=== PATIENT | female | born 1995 | race Caucasian/White ===

== ENCOUNTER 2019-12-13 13:21 | Outpatient (REF) | payer OTHER, SELFPAY | END 2019-12-13 13:22 | disposition home or self-care (01) | LOC: HO.LAB 13:21 | PROVIDERS: Visit Provider Internal Medicine | DX: Z20.828 Contact with and (suspected) exposure to other viral communicable diseases (principal) | CPT/HCPCS: 87635 ==

== ENCOUNTER 2019-12-21 14:10 | Emergency (ER) | payer OTHER, SELFPAY ==
--- NOTE | 2019-12-21 14:18 | ED.NAVMDI ---
HPI - Nausea/Vomiting/Diarrhea General Chief complaint: Nausea/Vomiting/Diarrhea Stated complaint: etoh Time Seen by Provider: 12/21/19 14:17 Source: EMS Mode of arrival: EMS Limitations: no limitations History of Present Illness HPI Narrative: 24-year-old female with past medical history significant for alcohol abuse and acute alcoholic pancreatitis for which she had admission here on October 07 presenting via EMS with complaint of epigastric abdominal pain / nausea vomiting since this morning. She states she was clean for 45 days relapsed 3 days ago she drinks scotch and had a few scratch drinks a day slow intensive vital past 2 days and last night had a few more drinks this morning woke up with these symptoms. MD elicited complaint: nausea, vomiting and abdominal pain Onset (ago): day(s) Description of vomiting: bilious Associated nausea: Yes Associated abdominal pain: Yes Location of pain: epigastric Radiation: diffuse Pain consistency: constant Severity: moderate Quality: aching Exacerbating factors: eating and vomiting Relieving factors: none Context: alcohol abuse Associated symptoms: denies other symptoms Treatment prior to arrival: none Related Data Previous Rx's Medication Instructions Recorded ondansetron HCl [Zofran] 4 mg PO Q8H PRN #10 tab 12/21/19 oxycodone 5 mg PO BID PRN 5 Days #10 tab NS 12/21/19 Allergies Allergy/AdvReac Type Severity Reaction Status Date / Time No Known Allergies Allergy Unverified 11/15/19 17:01 [No Known Allergies*] Review of Systems Review of Systems: Constitutional: No Weight loss, No Fever, No Chills, No Night Sweats, No Fatigue, No Malaise ENT/Mouth: No Hearing loss, No Ear Pain, No Nasal Congestion, No Sinus Pain, No Hoarseness, No sore throat, No Rhinorrhea, No Swallowing Difficulty Eyes: No Eye Pain, No Swelling, No Redness, No Foreign Body, No Discharge, No Vision Changes Cardiovascular: No Chest Pain, No SOB, No Dyspnea on Exertion, No Orthopnea, No Edema, No Palpitations Respiratory: No Cough, No Sputum, No Wheezing, No Dyspnea Gastrointestinal: No Nausea, No Vomiting, No Diarrhea, No Constipation, No abdominal Pain, No Hematochezia, No Melena Genitourinary: no irregular bleeding, No Dysuria, No Urinary Frequency, No Hematuria, No Urinary Incontinence, No Urgency, No Flank Pain, No Urinary Flow Changes, No Hesitancy Musculoskeletal: No joint pain, No Myalgias, No Joint Swelling Skin: No Skin Lesions, No rash Neuro: No Weakness, No Numbness, No Paresthesias, No Loss of Consciousness, No Dizziness, No Headache Psych: No Anxiety/Panic, No Depression, No SI/HI/AH/VH, No Social Issues Heme/Lymph: No Bruising, No Bleeding,No Lymphadenopathy Endocrine: No Polyuria, No Polydipsia, No Temperature Intolerance Yes all other systems are reviewed and are negative Gastrointestinal: Gastrointestinal: Reports nausea PMFSH Past Medical History Attestation statement: The following information was validated with the patient. Medical History (Updated 12/21/19 @ 19:44 by Nir Bourgeois NP) Pancreatitis Social History Social History Alcohol intake: current Alcohol intake frequency: 3 or more drinks per day Smoking Status: Never smoker Use of substances other than those prescribed or required for medical reasons: No Advance Directives: No Advance Directives Information Provided: No Physical Exam Vital Signs: Vital Signs: Vital Signs Temp Pulse Resp BP Pulse Ox 12/21/19 14:36 98.8 F 93 16 127/79 98 12/21/19 14:31 98.8 F 93 16 127/79 98 Body Mass Index 23.6 Reviewed Const: General: cooperative, healthy appearing and anxious; No acute distress or intoxicated appearing Nutritional Appearance: average body habitus Orientation/consciousness: patient oriented x3 HENMT: Head: Yes normal to inspection Ears: hearing grossly normal bilaterally Eyes: General: appearance normal, both eyes and all related structures Visual Peres: normal visual peres by confrontation Neck: Neck: Yes normal visual inspection and No tender Thyroid: Thyroid normal Chest: Chest palpation & inspection: normal inspection of the chest Resp: Effort & Inspection: normal respiratory effort Cardio: Jugular venous distension: no JVD GI: Inspection: Yes normal to inspection Percussion: Yes normal to percussion Auscultation: normal bowel sounds : General: Yes no CVA tenderness Back/Spine/Pelvis: Back: no CVA tenderness Skin: General skin exam: no rashes or lesions noted Neuro: General: patient oriented x3 Extrem: General: Yes normal to inspection Course Course Course Narrative: labs shows improving transaminitis in the setting of alcohol abuse. Still slight epigastric pain but resting comfortably. CT of the abdomen shows findings consistent with acute on chronic pancreatitis. She has no pain at this time. Tolerating p.o. intake well. Reluctant against admission. Will be discharged home with clear precaution return follow-up instructions. Referral to Gastroenterology provided. Risk of continued alcohol abuse reviewed including but not limited to worsening in her health/pancreatitis/. She verbalized understanding. Will follow up with GI as well as her primary care doctor on Tuesday. She is stable for discharge. MDM - Nausea/Vomiting/Diarrhea Medical Records Attestation: I reviewed the patient's medical records. Medical records narrative: 10/08/2019 admission/ discharge diagnosis Steatosis, acute pancreatitis, alcohol dependence Lab Data Result diagrams: 12/21/19 14:47 12/21/19 14:47 Labs: Lab Results 12/21/19 12/21/19 12/21/19 Range/Units 14:47 14:47 14:47 WBC 8.8 (4.8-10.8) X10*3/uL RBC 4.19 L (4.20-5.50) X10*6/uL Hgb 13.3 (12.0-16.0) g/dl Hct 40.0 (37-47) % MCV 95.5 (80-98) fL MCH 31.7 (27.0-33.0) pg MCHC 33.3 (31.0-35.0) g/dl RDW 11.9 (11.0-16.0) % Plt Count 162 (160-400) X10*3/uL MPV 10.0 (9.4-12.3) fL Immature Gran % (Auto) 0.5 H (0.0-0.4) % Neut % (Auto) 80.6 H (45-73) % Lymph % (Auto) 15.1 L (20-40) % [place] % (Auto) 3.1 (2-11) % Eos % (Auto) 0.1 (0-4) % Baso % (Auto) 0.6 (0-2) % Lymph # (Auto) 1.3 (1.2-4.9) X10*3/uL [place] # (Auto) 0.3 (0.1-1.2) X10*3/uL Eos # (Auto) 0.0 (0.0-0.4) X10*3/uL Baso # (Auto) 0.1 (0.0-0.2) X10*3/uL Abs Immat Gran (auto) 0.04 H (0.00-0.03) X10*3/uL Absolute Neuts (auto) 7.1 (2.0-8.3) X10*3/uL Absolute Nucleated RBC 0.000 (0.0-0.012) X10*3/uL Nucleated RBC % (auto) 0.0 (0.0-0.2) /100WBC PT 13.1 H (10.8-13.0) SEC INR 1.1 (0.9-1.1) APTT 27.6 (24.1-38.0) SEC Sodium 139 (135-145) mmol/L Potassium 3.3 (3.3-5.1) mmol/l Chloride 98 (96-108) mmol/L Carbon Dioxide 14 L (22-29) mmol/L Anion Gap 30 H (12-20) BUN 11 (9-16) mg/dL Creatinine 0.69 (0.5-1.4) mg/dL Estim Creat Clear Calc 106.7 Estimated GFR > 60 Random Glucose 75 (60-115) mg/dL Calcium 8.8 (8.4-10.2) mg/dL Magnesium 1.8 (1.6-2.6) mg/dL Total Bilirubin 1.6 H (0.0-1.0) mg/dL AST 66 H (5-31) U/L ALT 37 H (0-31) U/L Alkaline Phosphatase 69 (39-117) U/L Total Protein 7.3 (6.5-8.0) g/dL Albumin 4.6 (3.5-5.0) g/dL Lipase 380 H (8-78) U/L Urine Color Urine Appearance Urine pH (5.0-8.0) Ur Specific [place] (1.005-1.025) Urine Protein (NEG-TRACE) MG/DL Urine Glucose (UA) (NEG) MG/DL Urine Ketones (NEG) MG/DL Urine Blood (NEG) Urine Nitrite (NEG) Ur Leukocyte Esterase (NEG) Urine RBC (0) /HPF Urine WBC (0-4) /HPF Ur Squamous Epith Cells /LPF Urine Bacteria /LPF Urine Test (NEGATIVE) Urine Opiates Screen (Not Detect) Ur Barbiturates Screen (Not Detect) Ur Phencyclidine Scrn (Not Detect) Ur Amphetamines Screen (Not Detect) U Benzodiazepines Scrn (Not Detect) Urine Cocaine Screen (Not Detect) U Marijuana (THC) Screen (Not Detect) Ethyl Alcohol mg/dL 12/21/19 12/21/19 12/21/19 Range/Units 14:47 17:56 17:56 WBC (4.8-10.8) X10*3/uL RBC (4.20-5.50) X10*6/uL Hgb (12.0-16.0) g/dl Hct (37-47) % MCV (80-98) fL MCH (27.0-33.0) pg MCHC (31.0-35.0) g/dl RDW (11.0-16.0) % Plt Count (160-400) X10*3/uL MPV (9.4-12.3) fL Immature Gran % (Auto) (0.0-0.4) % Neut % (Auto) (45-73) % Lymph % (Auto) (20-40) % [place] % (Auto) (2-11) % Eos % (Auto) (0-4) % Baso % (Auto) (0-2) % Lymph # (Auto) (1.2-4.9) X10*3/uL [place] # (Auto) (0.1-1.2) X10*3/uL Eos # (Auto) (0.0-0.4) X10*3/uL Baso # (Auto) (0.0-0.2) X10*3/uL Abs Immat Gran (auto) (0.00-0.03) X10*3/uL Absolute Neuts (auto) (2.0-8.3) X10*3/uL Absolute Nucleated RBC (0.0-0.012) X10*3/uL Nucleated RBC % (auto) (0.0-0.2) /100WBC PT (10.8-13.0) SEC INR (0.9-1.1) APTT (24.1-38.0) SEC Sodium (135-145) mmol/L Potassium (3.3-5.1) mmol/l Chloride (96-108) mmol/L Carbon Dioxide (22-29) mmol/L Anion Gap (12-20) BUN (9-16) mg/dL Creatinine (0.5-1.4) mg/dL Estim Creat Clear Calc Estimated GFR Random Glucose (60-115) mg/dL Calcium (8.4-10.2) mg/dL Magnesium (1.6-2.6) mg/dL Total Bilirubin (0.0-1.0) mg/dL AST (5-31) U/L ALT (0-31) U/L Alkaline Phosphatase (39-117) U/L Total Protein (6.5-8.0) g/dL Albumin (3.5-5.0) g/dL Lipase (8-78) U/L Urine Color Urine Appearance Urine pH (5.0-8.0) Ur Specific [place] (1.005-1.025) Urine Protein (NEG-TRACE) MG/DL Urine Glucose (UA) (NEG) MG/DL Urine Ketones (NEG) MG/DL Urine Blood (NEG) Urine Nitrite (NEG) Ur Leukocyte Esterase (NEG) Urine RBC (0) /HPF Urine WBC (0-4) /HPF Ur Squamous Epith Cells /LPF Urine Bacteria /LPF Urine Test NEGATIVE (NEGATIVE) Urine Opiates Screen Not Detected (Not Detect) Ur Barbiturates Screen Not Detected (Not Detect) Ur Phencyclidine Scrn Not Detected (Not Detect) Ur Amphetamines Screen Not Detected (Not Detect) U Benzodiazepines Scrn Not Detected (Not Detect) Urine Cocaine Screen Not Detected (Not Detect) U Marijuana (THC) Screen Not Detected (Not Detect) Ethyl Alcohol 31 mg/dL 12/21/19 Range/Units 17:57 WBC (4.8-10.8) X10*3/uL RBC (4.20-5.50) X10*6/uL Hgb (12.0-16.0) g/dl Hct (37-47) % MCV (80-98) fL MCH (27.0-33.0) pg MCHC (31.0-35.0) g/dl RDW (11.0-16.0) % Plt Count (160-400) X10*3/uL MPV (9.4-12.3) fL Immature Gran % (Auto) (0.0-0.4) % Neut % (Auto) (45-73) % Lymph % (Auto) (20-40) % [place] % (Auto) (2-11) % Eos % (Auto) (0-4) % Baso % (Auto) (0-2) % Lymph # (Auto) (1.2-4.9) X10*3/uL [place] # (Auto) (0.1-1.2) X10*3/uL Eos # (Auto) (0.0-0.4) X10*3/uL Baso # (Auto) (0.0-0.2) X10*3/uL Abs Immat Gran (auto) (0.00-0.03) X10*3/uL Absolute Neuts (auto) (2.0-8.3) X10*3/uL Absolute Nucleated RBC (0.0-0.012) X10*3/uL Nucleated RBC % (auto) (0.0-0.2) /100WBC PT (10.8-13.0) SEC INR (0.9-1.1) APTT (24.1-38.0) SEC Sodium (135-145) mmol/L Potassium (3.3-5.1) mmol/l Chloride (96-108) mmol/L Carbon Dioxide (22-29) mmol/L Anion Gap (12-20) BUN (9-16) mg/dL Creatinine (0.5-1.4) mg/dL Estim Creat Clear Calc Estimated GFR Random Glucose (60-115) mg/dL Calcium (8.4-10.2) mg/dL Magnesium (1.6-2.6) mg/dL Total Bilirubin (0.0-1.0) mg/dL AST (5-31) U/L ALT (0-31) U/L Alkaline Phosphatase (39-117) U/L Total Protein (6.5-8.0) g/dL Albumin (3.5-5.0) g/dL Lipase (8-78) U/L Urine Color YELLOW Urine Appearance HAZY Urine pH 6.0 (5.0-8.0) Ur Specific [place] >= 1.030 H (1.005-1.025) Urine Protein TRACE (NEG-TRACE) MG/DL Urine Glucose (UA) NEG (NEG) MG/DL Urine Ketones >=80 (NEG) MG/DL Urine Blood 3+ H (NEG) Urine Nitrite NEG (NEG) Ur Leukocyte Esterase NEG (NEG) Urine RBC 1-4 (0) /HPF Urine WBC 0 (0-4) /HPF Ur Squamous Epith Cells 2+ /LPF Urine Bacteria 1+ /LPF Urine Test (NEGATIVE) Urine Opiates Screen (Not Detect) Ur Barbiturates Screen (Not Detect) Ur Phencyclidine Scrn (Not Detect) Ur Amphetamines Screen (Not Detect) U Benzodiazepines Scrn (Not Detect) Urine Cocaine Screen (Not Detect) U Marijuana (THC) Screen (Not Detect) Ethyl Alcohol mg/dL Discharge Plan Discharge Clinical Impression: Alcohol abuse Pancreatitis Qualifiers: Chronicity: chronic Pancreatitis type: alcohol induced Qualified Code(s): K86.0 - Alcohol-induced chronic pancreatitis Patient Disposition: Home, Self-Care Instructions: Pancreatitis (ED), Abuse of Alcohol (ED), Alcohol Use Disorder (ED) Additional Instructions: avoid any alcoholic beverages Fall dietary precautions reviewed [place] diet Gradually increased diet as tolerated Push fluids Take medication Prescriptions: New ondansetron HCl [Zofran] 4 mg tablet 4 mg PO Q8H PRN (Reason: nausea and vomiting) Qty: 10 RF: 0 oxycodone 5 mg tablet 5 mg PO BID PRN (Reason: pain) 5 Days Qty: 10 RF: 0 Referrals: ED Physician,Generic [Emergency Provider] - 3 days ( your primary care doctor) Eboni Phelan MD [Physician] - 3 days
[2019-12-21 14:31] VITALS: BP 127/79; BP 128/81; PULSE 80; PULSE 93; RESP 16; TEMP 37.1; O2SAT 100; O2SAT 98; BMI 23.6
[2019-12-21 14:36] VITALS: BP 127/79; PULSE 93; RESP 16; TEMP 37.1; O2SAT 98
[2019-12-21 14:51] LABS: MANUAL DIFF FLAG NO
[2019-12-21] MEDS: 0.9 % Sodium Chloride 500 ML 1000 ML IV (14:52)
[2019-12-21] MEDS: LORazepam 2 MG/ML VIAL 1 MG IVPUSH (14:53)
[2019-12-21] MEDS: ondansetron HCL 4 MG/2 ML VIAL IVPUSH (14:53)
[2019-12-21 14:55] LABS: Basophils Absolute Auto 0.1 X10*3/uL (0.0-0.2); Basophils Percent Auto 0.6 % (0-2); Eosinophils Percent Auto 0.1 % (0-4); Hemoglobin 13.3 g/dl (12.0-16.0); Imm Gran Abs Auto 0.04 X10*3/uL (0.00-0.03); Imm Gran Pct Auto 0.5 % (0.0-0.4); Lymphocytes Absolute Auto 1.3 X10*3/uL (1.2-4.9); Lymphocytes Percent Auto 15.1 % (20-40); Mean Corpuscular HGB Conc 33.3 g/dl (31.0-35.0); Mean Corpuscular Hemoglobin 31.7 pg (27.0-33.0); Mean Corpuscular Volume 95.5 fL (80-98); Monocytes Absolute Auto 0.3 X10*3/uL (0.1-1.2); Monocytes Percent Auto 3.1 % (2-11); Neutrophils Absolute Auto 7.1 X10*3/uL (2.0-8.3); Neutrophils Percent Auto 80.6 % (45-73); Platelet Count 162 X10*3/uL (160-400); Red Blood Count 4.19 X10*6/uL (4.20-5.50); Red Cell Distribution Width 11.9 % (11.0-16.0); White Blood Count 8.8 X10*3/uL (4.8-10.8)
[2019-12-21 15:02] LABS: INTERNATIONAL NORM RATIO 1.1 (0.9-1.1); Prothrombin Time 13.1 SEC (10.8-13.0)
[2019-12-21 15:05] LABS: Partial Thromboplastin Time 27.6 SEC (24.1-38.0)
[2019-12-21 15:19] LABS: Ethanol 31 mg/dL
[2019-12-21 15:26] LABS: Alanine Aminotransferase 37 U/L (0-31); Albumin Level 4.6 g/dL (3.5-5.0); Alkaline Phosphatase 69 U/L (39-117); Anion Gap 30 (12-20); Aspartate Amino Transferase 66 U/L (5-31); Bilirubin Total 1.6 mg/dL (0.0-1.0); Blood Urea Nitrogen 11 mg/dL (9-16); Calcium 8.8 mg/dL (8.4-10.2); Carbon Dioxide 14 mmol/L (22-29); Chloride 98 mmol/L (96-108); Creatinine Clr Calc Pharmacy 106.7; Estimated Glomerular Filt Rate > 60; Glucose Random 75 mg/dL (60-115); Magnesium 1.8 mg/dL (1.6-2.6); Potassium 3.3 mmol/l (3.3-5.1); Sodium 139 mmol/L (135-145); Total Protein 7.3 g/dL (6.5-8.0)
[2019-12-21 16:54] LABS: Lipase 380 U/L (8-78)
--- NOTE | 2019-12-21 17:15 | CT_ITS ---
EXAMINATION: CT ABDOMEN AND PELVIS WITH CONTRAST CLINICAL INFORMATION: Epigastric and upper abdominal pain with history of pancreatitis COMPARISON: CT of the abdomen and pelvis performed on 10/05/2019 TECHNIQUE: Multidetector volumetric images were obtained from the superior aspect of the liver through the pubic symphysis following administration 85 mL of Omnipaque 350 intravenous contrast. Sagittal and coronal reformatted images were obtained on the technologist's workstation. Oral contrast: No This CT examination was performed using dose optimization techniques as appropriate, variously including the following: *Automated exposure control *Adjustment of mA and/or kV according to patient size (this includes techniques or standardized protocols for targeted exams where dose is matched to indication/reason for exam; i.e. extremities or head) *Use of iterative reconstruction technique DLP: 398 mGy-cm FINDINGS: LUNG BASES: The visualized lung bases are unremarkable. LIVER, GALLBLADDER, AND BILIARY TREE: Again demonstrated is diffusely decreased attenuation of the hepatic parenchyma likely circulation sales representative of hepatic steatosis. No focal lesion is visualized. The gallbladder is unremarkable with no evidence of radiopaque gallstones, gallbladder wall thickening, or obvious pericholecystic inflammatory changes. No intrahepatic or extrahepatic biliary ductal dilatation. PANCREAS: There is edema of the pancreas with a small amount of peripancreatic fluid fluid. No fluid collection. There is uniform enhancement of the pancreatic parenchyma. SPLEEN: Unremarkable. ADRENAL GLANDS: Unremarkable. KIDNEYS AND URETERS: The kidneys are normal in size, shape, and attenuation. No hydronephrosis, hydroureter, or calculi seen. No perinephric stranding. BLADDER: Unremarkable. GASTROINTESTINAL TRACT: The stomach is normal in appearance. There wall thickening of the duodenum, likely circulation sales representative of reactive/adjacent inflammation. The remainder of the small bowel and colon are normal in appearance. No focal dilatation or evidence of obstruction. Normal appendix. ABDOMINAL WALL: No significant hernia is appreciated. LYMPH NODES: No pathologically enlarged lymph nodes. Mild mid mesenteric edema and free fluid. VASCULAR: Unremarkable. PELVIC VISCERA: Unremarkable. OSSEOUS STRUCTURES: Unremarkable. CT/CT abdomen pelvis w con IMPRESSION: Acute interstitial edematous pancreatitis is again demonstrated with some peripancreatic fluid. No loculated peripancreatic fluid collection. No evidence of pancreatic necrosis. Adjacent inflammation of the duodenum. No evidence of bowel obstruction. Redemonstration of diffuse hepatic steatosis.
[2019-12-21 18:00] VITALS: BP 124/74; PULSE 88; RESP 16; TEMP 36.6; O2SAT 99
[2019-12-21 18:18] LABS: Glucose Urine UA NEG (NEG); Leukocyte Esterase Urine NEG (NEG); Nitrite Urine NEG (NEG); Specific Gravity - Urine >= 1.030 (1.005-1.025); Urine Blood 3+ (NEG); Urine Ketones >=80 MG/DL (NEG); Urine Protein TRACE MG/DL (NEG-TRACE)
[2019-12-21 18:21] LABS: Appearance Urine HAZY; Color Urine YELLOW
[2019-12-21 18:22] LABS: UPreg QC Valid YES; Urine Pregnancy NEGATIVE (NEGATIVE)
[2019-12-21 18:28] LABS: Bacteria Urine 1+ /LPF; Squamous Epithelial Cell Urine 2+ /LPF; WBC Urine 0 /HPF (0-4)
[2019-12-21 18:35] LABS: Amphetamine Screen Urine Not Detected (Not Detect); Barbiturates, Urine Not Detected (Not Detect); Benzodiazepines Screen Urine Not Detected (Not Detect); Cannabinoid Screen Urine Not Detected (Not Detect); Cocaine Screen Urine Not Detected (Not Detect); Opiate Screen Urine Not Detected (Not Detect); Phencyclidine Screen Urine Not Detected (Not Detect)
[2019-12-21] MEDS: iohexoL 350 MG/ML 100 ML INFUS..BTL IV (18:44)
[2019-12-21 20:00] VITALS: BP 120/81; PULSE 95; RESP 16; TEMP 36.7; O2SAT 98
== END 2019-12-21 20:38 | disposition home or self-care (01) ==
PROVIDERS: Nurse Practitioner Primary Care; Emergency Provider Emergency Medicine
DX: K86.0 Alcohol-induced chronic pancreatitis (principal); F10.10 Alcohol abuse, uncomplicated; Y90.1 Blood alcohol level of 20-39 mg/100 ml
CPT/HCPCS: 36415; 74177; 80053; 80307; 80320; 81001; 81025; 83690; 83735; 85025; 85610; 85730; 96361; 96374; 96375; 99284

== ENCOUNTER 2020-03-06 12:14 | Outpatient (REF) | payer OTHER, SELFPAY | END 2020-03-06 12:15 | disposition home or self-care (01) | LOC: HO.LAB 12:14 | PROVIDERS: Visit Provider Internal Medicine | DX: Z20.828 Contact with and (suspected) exposure to other viral communicable diseases (principal) | CPT/HCPCS: 36415; C9803; U0003 ==

== ENCOUNTER 2024-09-25 17:57 | Emergency (ER) | payer OTHER, SELFPAY ==
--- NOTE | ~2024-09-25 | CT_ITS ---
CLINICAL HISTORY: left flank pain, renal colic CT abdomen and pelvis without contrast Comparison: None provided Findings: Visualized lung bases are clear. Liver, spleen, adrenal glands, and gallbladder appear unremarkable. Scattered calcifications throughout pancreatic head and uncinate process that may represent component of chronic calcific pancreatitis.. No ductal dilation. No obstructing renal, ureteral or bladder calculi. Noncalcified and nonaneurysmal abdominal aorta. Unremarkable urinary bladder. Anteverted uterus. No free air or free fluid. Stomach is nondistended. Small bowel is normal caliber. No obstruction. Colon is unremarkable. No acute appendicitis. No acute osseous abnormality. No lytic or sclerotic osseous lesions. Impression: 1. No acute findings identified in the abdomen or pelvis. 2. Specifically, no evidence of obstructing renal, ureteral or bladder calculi. 3. Additional chronic/nonacute findings as above. This document has been electronically signed by: Jaswant Agarwal MD on 09/25/2024 23:48:53
[2024-09-25 18:44] VITALS: BP 139/80; PULSE 55; RESP 18; TEMP 36.9; O2SAT 98; BMI 25.3
--- NOTE | 2024-09-25 18:44 | ED.ABDPAIN ---
HPI - Abdominal Pain General Chief Complaint: Abdominal Pain Stated Complaint: Flank pain. Sent from Time Seen by Provider: 09/25/24 21:37 Source: patient Limitations: no limitations History of Present Illness ED Provider: Yvrose Spence PA-C HPI narrative: 29-year-old female with a history of prior pancreatitis presents with multiple complaints. Patient states she has been having left lumbar discomfort for the past 10 days. Patient is active, she does exercise on a regular basis, however there have been no changes to her routine. The pain is nonradiating, without weakness of lower extremity, paresthesia, she is urinating and having normal bowel movements. Denies history of kidney stones, no dysuria, hematuria, nausea vomiting or fever. Patient also complains of epigastric discomfort. Patient is noted to have a rash over right upper quadrant adjacent to the epigastrium, she was told she has shingles; patient was seen at urgent care prior to arrival, she was sent here for further assessment, they did not treat her with the antiviral medication. Related Data Previous Rx's ?Medication ?Instructions ?Recorded ondansetron HCl 4 mg tablet 4 mg PO Q8H PRN nausea and 12/21/19 (Zofran) vomiting #10 tabs oxycodone 5 mg tablet 5 mg PO BID PRN pain 5 days #10 12/21/19 tabs ketorolac 10 mg tablet 10 mg PO Q6H PRN pain #20 tabs 09/26/24 valacyclovir 1 gram tablet 1,000 mg PO Q8H #20 tabs 09/26/24 Allergies Allergy/AdvReac Type Severity Reaction Status Date / Time No Known Allergies (No Known Allergy Verified 09/25/24 18:45 Allergies*) Review of Systems Review of Systems Yes all other systems are reviewed and are negative Constitutional: Denies fatigue and Denies fever(s) Cardiovascular: Denies chest pain and Denies dyspnea Respiratory: Denies cough and Denies dyspnea Gastrointestinal: Reports abdominal pain, Denies diarrhea, Denies nausea and Denies vomiting Genitourinary: Denies hematuria, Denies dysuria and Reports flank pain Musculoskeletal: Reports back pain, Denies muscle weakness, Denies numbness and Denies tingling Skin/Breast: Reports rash Denies numbness and Denies tingling Endocrine: Denies fatigue PMFSH Past Medical History Attestation statement: The following information was validated with the patient. Medical History (Updated 09/26/24 @ 01:42 by MARGIE Concepcion) Pancreatitis Social History Social History Alcohol intake: current Alcohol intake frequency: holidays/special occasions only Smoked in Last 30 Days: No Use of substances other than those prescribed or required for medical reasons: No Advance Directives: No Advance Directives Information Provided: No Do you have a plan to hurt others: No Plan Physical Exam ED Vital Signs: Vital Signs - 24 hr 09/25/24 18:44 09/26/24 00:21 Temperature 98.5 F 98.4 F Pulse Rate 55 53 Respiratory Rate 18 18 Blood Pressure 139/80 110/57 L Pulse Oximetry 98 99 Oxygen Delivery Method Room Air Room Air BMI result Body Mass Index 25.3 Const Other: Alert well-appearing Orientation/consciousness: patient oriented x3 Resp Effort & Inspection: normal respiratory effort Cardio Other: Normal peripheral perfusion GI Other: Abdomen is soft, nondistended, nontender, no guarding with deep palpation. Faint vesicular linear rash noted in right upper quadrant, does not cross the midline General: Yes no CVA tenderness Back/Spine/Pelvis Back: no CVA tenderness Skin Other: Warm and dry, rash noted as already described Neuro General: patient oriented x3, gait normal, no focal motor deficits and CN's II-XI intact bilaterally Psych Other: Calm cooperative Course Course Course Narrative: This is an RME performed by Petros Pardo CNP: Additional HPI, ROS, PE not included below will be deferred to primary provider. Patient is a 29-year-old female presents emergency department for evaluation she has been experiencing left flank pain for the past 1.5 weeks associated nausea and chills. Has a history of pancreatitis, history of alcohol usage. Presented to urgent care and was referred to emergency for further evaluation. Plan: Serum labs, urinalysis, hCG Medical Decision Making Medical Decision Making MDM Narrative: 29-year-old female with a history of prior pancreatitis presents with multiple complaints. Patient states she has been having left lumbar discomfort for the past 10 days. Patient is active, she does exercise on a regular basis, however there have been no changes to her routine. The pain is nonradiating, without weakness of lower extremity, paresthesia, she is urinating and having normal bowel movements. Denies history of kidney stones, no dysuria, hematuria, nausea vomiting or fever. Patient also complains of epigastric discomfort. Patient is noted to have a rash over right upper quadrant adjacent to the epigastrium, she was told she has shingles; patient was seen at urgent care prior to arrival, she was sent here for further assessment, they did not treat her with the antiviral medication. Problem: Pancreatitis History: Per patient I have considered the following differential diagnoses: Shingles, pancreatitis, renal colic, pyelonephritis, UTI, musculoskeletal strain, cauda equina, lumbar radiculopathy Plan: In regard to the back pain, it is likely musculoskeletal, she is not having radicular symptoms, she has no red flag signs symptoms concerning for cord compression. Given distribution, I am also considering renal colic. Screening labs and a urinalysis are in process, we will obtain a CT scan. Giving fluid, Toradol and starting her on valacyclovir. With deep palpation, I am not eliciting any discomfort over the upper abdomen, and her lipase is negative. I feel her discomfort is referred pain from her shingles. I have independently reviewed the following tests: Labs: No leukocytosis, not anemic, no electrolyte abnormality noted, not , urine not infected CT abdomen and pelvis:Findings: Visualized lung bases are clear. Liver, spleen, adrenal glands, and gallbladder appear unremarkable. Scattered calcifications throughout pancreatic head and uncinate process that may represent component of chronic calcific pancreatitis.. No ductal dilation. No obstructing renal, ureteral or bladder calculi. Noncalcified and nonaneurysmal abdominal aorta. Unremarkable urinary bladder. Anteverted uterus. No free air or free fluid. Stomach is nondistended. Small bowel is normal caliber. No obstruction. Colon is unremarkable. No acute appendicitis. No acute osseous abnormality. No lytic or sclerotic osseous lesions. Impression: 1. No acute findings identified in the abdomen or pelvis. 2. Specifically, no evidence of obstructing renal, ureteral or bladder calculi. 3. Additional chronic/nonacute findings as above. Lab Data 09/25/24 19:23 09/25/24 19:23 Labs: Lab Results 09/25/24 09/25/24 Range/Units 19:23 19:27 WBC 7.9 (4.8-10.8) X10*3/uL RBC 4.50 (4.20-5.50) X10*6/uL Hgb 13.7 (12.0-16.0) g/dl Hct 39.7 (37.0-47.0) % MCV 88.2 (80.0-98.0) fL MCH 30.4 (27.0-33.0) pg MCHC 34.5 (31.0-35.0) g/dl RDW 12.6 (11.0-16.0) % Plt Count 247 (160-400) X10*3/uL MPV 9.2 L (9.4-12.3) fL Immature Gran % (Auto) 0.3 (0.0-0.4) % Neut % (Auto) 42.6 L (45-73) % Lymph % (Auto) 49.2 H (20-40) % [place] % (Auto) 6.7 (2-11) % Eos % (Auto) 0.9 (0-4) % Baso % (Auto) 0.3 (0-2) % Lymph # (Auto) 3.9 (1.2-4.9) X10*3/uL [place] # (Auto) 0.5 (0.1-1.2) X10*3/uL Eos # (Auto) 0.1 (0.0-0.4) X10*3/uL Baso # (Auto) 0.0 (0.0-0.2) X10*3/uL Abs Immat Gran (auto) 0.02 (0.00-0.03) X10*3/uL Absolute Neuts (auto) 3.4 (2.0-8.3) x10*3/uL Absolute Nucleated RBC 0.000 (0.0-0.012) X10*3/uL Nucleated RBC % (auto) 0.0 (0.0-0.2) /100WBC Sodium 138 (135-145) mmol/L Potassium 4.7 (3.3-5.1) mmol/L Chloride 105 (96-108) mmol/L Carbon Dioxide 22 (22-29) mmol/L Anion Gap 16 (12-20) BUN 15 (9-16) mg/dL Creatinine 0.92 (0.5-1.4) mg/dL Estim Creat Clear Calc 80.2 Estimated GFR > 60 Random Glucose 88 (60-115) mg/dL Calcium 10.3 H D (8.4-10.2) mg/dL Total Bilirubin 0.9 (0.0-1.0) mg/dL AST 22 (5-31) U/L ALT 15 (0-31) U/L Alkaline Phosphatase 54 (39-117) U/L Total Protein 7.5 (6.5-8.0) g/dL Albumin 4.5 (3.5-5.0) g/dL Lipase 20 (8-78) U/L Urine Color Yellow Urine Appearance Clear Urine pH 5.5 (5.0-9.0) Ur Specific [place] <= 1.005 (1.005-1.025) Urine Protein Negative (Neg-Trace) mg/dL Urine Glucose (UA) Negative (Negative) mg/dL Urine Ketones Negative (Negative) mg/dL Urine Blood Negative (Negative) Urine Nitrite Negative (Negative) Ur Leukocyte Esterase Negative (Negative) Urine Test NEGATIVE (NEGATIVE) Medications Administered Discontinued Medications Generic Name Dose Route Start Last Admin Trade Name Freq PRN Reason Stop Dose Admin Sodium Chloride 1,000 mls @ 999 mls/hr 09/25/24 22:45 09/25/24 22:49 Ns IV 09/25/24 23:45 999 mls/hr .Q1H1M DERIK Administration Ketorolac Tromethamine 15 mg 09/25/24 22:40 09/25/24 22:55 Ketorolac Tromethamine 15 Mg/Ml Vial IVPUSH 09/25/24 22:41 15 mg ONCE ONE Administration Ondansetron HCl 4 mg 09/25/24 22:40 09/25/24 22:54 Ondansetron Hcl 4 Mg/2 Ml Vial IVPUSH 09/25/24 22:41 4 mg ONCE ONE Administration Valacyclovir HCl 1,000 mg 09/25/24 22:40 09/25/24 22:54 Valacyclovir Hcl 1,000 Mg Tablet PO 09/25/24 22:41 1,000 mg ONCE ONE Administration Discharge Plan Discharge Clinical Impression: Herpes zoster, Lumbar strain Patient Disposition: Home, Self-Care Instructions: Shingles (ED), Low Back Strain (ED) Additional Instructions: All of your screening labs were normal, your urine is not infected. The CT scan was normal as well. You were found to have shingles. Take the valacyclovir as directed. In regard to your back pain, it appears to be musculoskeletal in nature. You can use the ketorolac as needed, take it with food. Follow up with your primary care provider as needed. Prescriptions: New valacyclovir 1 gram tablet 1,000 mg PO Q8H Qty: 20 0RF ketorolac 10 mg tablet 10 mg PO Q6H PRN (Reason: pain) Qty: 20 0RF Rx Instructions: maximum total duration of 5 days from all oral, intranasal, or parenteral formulations. The patient received an IV dose of Toradol here in the emergency room No Action ondansetron HCl [Zofran] 4 mg tablet 4 mg PO Q8H PRN (Reason: nausea and vomiting) Qty: 10 0RF oxycodone 5 mg tablet 5 mg PO BID PRN (Reason: pain) 5 Days Qty: 10 0RF Stand Alone Forms: Work/School Release Print Language: Nepalese
[2024-09-25 19:27] LABS: Hematocrit 39.7 % (37.0-47.0); Hemoglobin 13.7 g/dl (12.0-16.0); Imm Gran Abs Auto 0.02 X10*3/uL (0.00-0.03); Imm Gran Pct Auto 0.3 % (0.0-0.4); Lymphocytes Absolute Auto 3.9 X10*3/uL (1.2-4.9); MANUAL DIFF FLAG NO; Mean Corpuscular HGB Conc 34.5 g/dl (31.0-35.0); Mean Corpuscular Hemoglobin 30.4 pg (27.0-33.0); Mean Corpuscular Volume 88.2 fL (80.0-98.0); NRBC Abs Auto 0.000 X10*3/uL (0.0-0.012); NRBC Pct Auto 0.0 /100WBC (0.0-0.2); Platelet Count 247 X10*3/uL (160-400); Red Blood Count 4.50 X10*6/uL (4.20-5.50); White Blood Count 7.9 X10*3/uL (4.8-10.8)
[2024-09-25 19:37] LABS: Appearance Urine Clear; Glucose Urine UA Negative (Negative); PH 5.5 (5.0-9.0); Specific Gravity - Urine <= 1.005 (1.005-1.025); UPreg QC Valid YES
[2024-09-25 19:41] LABS: Alanine Aminotransferase 15 U/L (0-31); Albumin Level 4.5 g/dL (3.5-5.0); Alkaline Phosphatase 54 U/L (39-117); Anion Gap 16 (12-20); Aspartate Amino Transferase 22 U/L (5-31); Blood Urea Nitrogen 15 mg/dL (9-16); Calcium 10.3 mg/dL (8.4-10.2); Carbon Dioxide 22 mmol/L (22-29); Chloride 105 mmol/L (96-108); Creatinine Clr Calc Pharmacy 80.2; Estimated Glomerular Filt Rate > 60; Lipase 20 U/L (8-78); Potassium 4.7 mmol/L (3.3-5.1); Sodium 138 mmol/L (135-145); Total Protein 7.5 g/dL (6.5-8.0)
[2024-09-26 00:21] VITALS: BP 110/57; PULSE 53; RESP 18; TEMP 36.9; O2SAT 99
[2024-09-26 02:02] VITALS: BP 99/50; PULSE 52; RESP 15; TEMP 36.8; O2SAT 98
== END 2024-09-26 02:04 | disposition home or self-care (01) ==
PROVIDERS: Nurse Practitioner Family; Emergency Provider Emergency Medicine
DX: B02.9 Zoster without complications (principal); S39.012A Strain of muscle, fascia and tendon of lower back, initial encounter; X50.9XXA Other and unspecified overexertion or strenuous movements or postures, initial encounter; Y93.B9 Activity, other involving muscle strengthening exercises; Y92.9 Unspecified place or not applicable; Y99.9 Unspecified external cause status
CPT/HCPCS: 36415; 74176; 80053; 81003; 81025; 83690; 85025; 96361; 96374; 96375; 99284; J1885; J2405

== ENCOUNTER → 2024-09-25 22:40 | Outpatient (BNV) | payer OTHER, SELFPAY | PROVIDERS: Emergency Provider Emergency Medicine; Visit Provider Radiology Diagnostic Radiology | DX: R10.32 Left lower quadrant pain (principal) | CPT/HCPCS: 74176 ==

== ENCOUNTER → 2024-10-28 20:49 | Outpatient (BNV) | payer OTHER, SELFPAY | PROVIDERS: Visit Provider Student in an Organized Health Care Education/Training Program | DX: S52.571A Other intraarticular fracture of lower end of right radius, initial encounter for closed fracture (principal); S52.611A Displaced fracture of right ulna styloid process, initial encounter for closed fracture | CPT/HCPCS: 73110 ==

== ENCOUNTER 2024-10-28 21:24 | Emergency (ER) | payer OTHER, SELFPAY ==
--- NOTE | ~2024-10-28 | XR_ITS ---
CLINICAL HISTORY: post reduction 3 view right wrist Comparison: CR - XR WRIST RT 2V - 10/28/24 21:49 EDT Findings: Distal radius and ulnar styloid fractures with mild improvement in postreduction alignment. No new findings. IMPRESSION: Mild improvement in postreduction alignment of distal radius and ulnar styloid fractures This document has been electronically signed by: Frank Velasquez MD on 10/29/2024 01:34:57
--- NOTE | ~2024-10-28 | XR_ITS ---
CLINICAL HISTORY: deformity s p trauma 3 view right wrist Comparison: None provided Findings: Acute comminuted fracture of the distal radius with intra-articular extension to the distal radioulnar joint and avulsion fracture of the radial styloid. There is dorsal displacement of the distal radius consistent with dislocation of the distal radioulnar joint. There is associated soft tissue swelling. No radiopaque foreign body. IMPRESSION: Acute comminuted fracture of the distal radius and avulsion fracture of the radial styloid with dislocation of the distal radioulnar joint This document has been electronically signed by: Frank Velasquez MD on 10/28/2024 22:34:51
[2024-10-28 21:32] VITALS: BP 136/76; PULSE 84; RESP 18; TEMP 37.2; O2SAT 98; BMI 23.0
[2024-10-28] MEDS: oxyCODONE HCl Immed Release 5 MG TABLET PO (22:02)
[2024-10-28 22:16] LABS: Hematocrit 39.3 % (37.0-47.0); Hemoglobin 13.3 g/dl (12.0-16.0); Imm Gran Abs Auto 0.02 X10*3/uL (0.00-0.03); Imm Gran Pct Auto 0.2 % (0.0-0.4); Lymphocytes Absolute Auto 5.2 X10*3/uL (1.2-4.9); MANUAL DIFF FLAG SCAN; Mean Corpuscular HGB Conc 33.8 g/dl (31.0-35.0); Mean Corpuscular Hemoglobin 30.0 pg (27.0-33.0); Mean Corpuscular Volume 88.7 fL (80.0-98.0); NRBC Abs Auto 0.000 X10*3/uL (0.0-0.012); NRBC Pct Auto 0.0 /100WBC (0.0-0.2); Platelet Count 259 X10*3/uL (160-400); Red Blood Count 4.43 X10*6/uL (4.20-5.50); SCAN SMEAR FLAG 1; White Blood Count 10.6 X10*3/uL (4.8-10.8)
--- OUTSIDE RECORDS SUMMARY | 2024-10-28 22:17 | XMS_ITS | Clinical Summary ---
Author Organization [facility] Address [address] [place] [id number] Phone Care Team Providers Care Client Support Representative Name Role Phone Unknown, Unknown Primary Care Provider Gerald winters Allergies No known active allergies Medications etonogestrel (NEXPLANON) 68 mg Impl Inject 68 mg into the skin Once every 3 years. Active albuterol 90 mcg/actuation inhaler Inhale 2 puffs into the lungs every 6 (six) hours as needed for wheezing or shortness of breath/dyspnea. 1 Inhaler 9 Active Additional Information Patient not taking.Reported on 12/01/2018 Social History Tobacco Use Types Packs/Day Years Used Date Smoking Tobacco: Never Smokeless Tobacco: Never Alcohol Use Standard Drinks/Week Comments Not Currently 0 (1 standard drink = 0.6 oz pur e alcohol) Education Answer Date Recorded Are you interested in more education? Not on jason e 06/25/2022 Are you concerned about learning? Not on file 06/25/2022 No 06/25/2022 No 06/25/2022 Digital Access Answer Date Recorded No 07/24/2022 No 07/24/2022 No 07/24/2022 Reliable internet access at home? Not on file 07/24/2022 Device with a working camera? Not on file Comments Unknown Sex and Gender Information Value Date Recorded Sex Assigned at Not on file Legal Sex Female 12:41 PM EDT Gender Identity Not on file Sexual Orientation Not on file Last Filed Vital Signs Vital Sign Reading Time Taken Comments Blood Pressure 125/89 12/01/2018 11:03 AM EDT Pulse 66 12/01/2018 11:03 AM EDT Temperature 36.6 C (97.9 F) 12/01/2018 11:03 AM EDT Respiratory Rate 18 05/23/2018 12:59 PM EDT Oxygen Saturation 97% 12/01/2018 11:03 AM EDT Inhaled Oxygen Concentration - - Weight 64 kg (141 lb) 12/01/2018 11:03 AM EDT Height 162.6 cm (5' 4 ) 12/01/2018 11:03 AM EDT Body Mass Index 24.2 12/01/2018 11:03 AM EDT Plan of Treatment Health Maintenance Due Date Last Done Comments DEPRESSION SCREENING 2005 HEPATITIS C SCREENING 05/29/2011 HIV ONE-TIME SCREENING (18-6 5 YEARS) 05/29/2011 PAP SMEAR 2014 COVID-19 VACCINE (2023-2 5 season) 2023 12/10/2020, 11/19/2020 Adult Td,Tdap Booster 03/22/2025 03/22/2015 , 04/19/2013 SMOKING STATUS SCREENING (On ce After 26 Yrs) Completed 12/01/2018 HEPATITIS A VACCINES Aged Out No long er eligible based on patient's age to complete this topic HIB VACCINES Aged Out No longer eligi ble based on patient's age to complete this topic MENINGOCOCCAL VACCINES (ACWY) Aged Out No longer eligible based on patient's age to complete this topic MENINGOCOCCAL VACCINES (B) Aged Out N o longer eligible based on patient's age to complete this topic PNEUMOCOCCAL VACCINES (0-49 years) Aged Out No longer eligible b ased on patient's age to complete this topic Medical Devices Not on file Insurance [facility] Care Teams Client Support Representative Relationship Specialty Start Date End Date Unknown, Unknown, PCP - General 05/23/18 Additional Source Comments The information contained in this document represents components of the legal health record. It is not the complete legal health record.[facility]
[2024-10-28 22:41] LABS: Anion Gap 12 (12-20); Blood Urea Nitrogen 13 mg/dL (9-16); Calcium 9.1 mg/dL (8.4-10.2); Carbon Dioxide 27 mmol/L (22-29); Chloride 108 mmol/L (96-108); Creatinine Clr Calc Pharmacy 86.4; Estimated Glomerular Filt Rate > 60; Magnesium 2.0 mg/dL (1.6-2.6); Potassium 4.2 mmol/L (3.3-5.1); Sodium 143 mmol/L (135-145)
--- NOTE | 2024-10-28 23:21 | ED_ITS ---
HPI - Extremity Problem General Chief complaint: Extremity Injury, Upper Stated complaint: right wrist injury Time Seen by Provider: 10/28/24 21:47 Source: patient Limitations: other (intoxicated) History of Present Illness ED Provider: Yvrose Spence PA-C HPI Narrative: 29 y/o F presents with right wrist pain/deformity.. Patient admits to drinking today, she was performing a cartwheel, she developed acute onset pain upon landing on her hands. Related Data Previous Rx's ?Medication ?Instructions ?Recorded ondansetron HCl 4 mg tablet 4 mg PO Q8H PRN nausea and 12/21/19 (Zofran) vomiting #10 tabs oxycodone 5 mg tablet 5 mg PO BID PRN pain 5 days #10 12/21/19 tabs ketorolac 10 mg tablet 10 mg PO Q6H PRN pain #20 ta bs 09/26/24 valacyclovir 1 gram tablet 1,000 mg PO Q8H #20 tabs oxycodone 5 mg tablet 5 mg PO Q8H PRN pain #10 tab s 10/29/24 Allergies Allergy/AdvReac Type Severity Reaction Status Date / Time No Known Allergies (No Known Allergy Verified 10/28/24 21:35 Allergies*) Review of Systems 2 Review of Systems: Yes all other systems are reviewed and are negative Constitutional: Constitutional: Denies fever(s) Musculoskeletal: Musculoskeletal: Reports arthralgias and Reports joint swelling PMFSH Past Medical History Attestation statement: The following information was validated with the patient. Medical History (Updated 10/29/24 @ 04:10 by MARGIE Concepcion) Pancreatitis Social History Social History Alcohol intake: current Alcohol intake frequency: holidays/special occasions only Advance Directives: No Advance Directives Information Provided: No Physical Exam 2 Vital Signs: Vital Signs: Last Vital Signs Temp 97.7 F 10/29/24 04:35 Pulse 70 10/29/24 04:35 Resp 15 10/29/24 04:35 BP 103/59 L 10/29/24 04:35 Pulse Ox 99 10/29/24 04:35 O2 Del Method Room Air 10/28/24 23:30 Oxygen Flow Rate 2 10/29/24 03:35 BMI result Body Mass Index 23.0 Const: Other: Alert Orientation/consciousness: patient oriented x3 HEENT: Other: Alcohol halitosis Resp: Effort & Inspection: normal respiratory effort Cardio: Other: Normal peripheral perfusion Skin: Other: Warm dry no rash Neuro: General: patient oriented x3, gait normal, no focal motor deficits and CN's II-XI intact bilaterally Extrem: Other: Minimal flexion and extension from the wrist secondary to pain, it is swollen, oracle 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 strength preserved Psych: Other: Cooperative, yet intoxicated Course Consultations Consultation #1: per ortho Ness Amato Splint in follow up in the office, they will try to see her within the next day or so Time: 23:23 Medications Administered Discontinued Medications Generic Name Dose Route Start Last Admin Trade Name Timoq PRN Reason Stop Dose Admin Ketamine HCl 58.9 mg 10/28/24 23:49 10/29/24 00:12 Ketamine Hcl/Ns 50 Mg/5 Ml Syringe 1 mg/kg (58.9 mg) 10/28/24 23:50 58.9 mg IVPUSH Administration ONCE ONE Ketorolac Tromethamine 15 mg 10/28/24 21:47 10/28/24 22:02 Ketorolac Tromethamine 15 Mg/Ml Vial IM 10/28/24 21:48 15 mg ONCE ONE Administration Midazolam HCl 5 mg 10/28/24 23:49 10/29/24 00:11 Midazolam Hcl 5 Mg/Ml Vial IVPUSH 10/28/24 23:50 5 mg ONCE ONE Administration Oxycodone HCl 5 mg 10/28/24 21:47 10/28/24 22:02 Oxycodone Hcl Immed Release 5 Mg Tablet PO 10/28/24 21:48 5 mg ONCE ONE Administration Medical Decision Making Medical Decision Making MDM Narrative: 29 y/o F presents with right wrist pain/deformity.. Patient admits to drinking today, she was performing a cartwheel, she developed acute onset pain upon landing on her hands. Problem: Intoxication History: Per patient I have considered the following differential diagnoses: Fracture, dislocation, sprain Plan: X-ray ordered from triage, she does have a fracture we will reach out to ortho, my assumption is splint, follow up in the office. We will require procedural sedation. I have independently reviewed the following tests: Labs: No leukocytosis, not anemic, no electrolyte abnormality, not , ethanol 335 X-ray right wrist: IMPRESSION: Acute comminuted fracture of the distal radius and avulsion fracture of the radial styloid with dislocation of the distal radioulnar joint Postreduction film: Findings: Distal radius and ulnar styloid fractures with mild improvement in postreduction alignment. No new findings. IMPRESSION: Mild improvement in postreduction alignment of distal radius and ulnar styloid fractures Admission/Observation Consideration of admission/observation: Escalation of care including admission/observation considered Admit Not applicable, we will be reaching out to ortho Consult Healthcare Provider Management of the patient was discussed with: Natural Gas Technician Ortho Lab Data [facility] Lab Attestation statement: I reviewed the patient's lab results. 10/28/24 22:09 10/28/24 22:09 Labs: Lab Results 10/28/24 Range/Units 22:09 WBC 10.6 (4.8-10.8) X10*3/uL RBC 4.43 (4.20-5.50) X10*6/uL Hgb 13.3 (12.0-16.0) g/dl Hct 39.3 (37.0-47.0) % MCV 88.7 (80.0-98.0) fL MCH 30.0 (27.0-33.0) pg MCHC 33.8 (31.0-35.0) g/dl RDW 13.0 (11.0-16.0) % Plt Count 259 (160-400) X10*3/uL MPV 9.0 L (9.4-12.3) fL Immature Gran % (Auto) 0.2 (0.0-0.4) % Neut % (Auto) 42.8 L (45-73) % Lymph % (Auto) 49.1 H (20-40) % [place] % (Auto) 5.7 (2-11) % Eos % (Auto) 1.8 (0-4) % Baso % (Auto) 0.4 (0-2) % Lymph # (Auto) 5.2 H (1.2-4.9) X10*3/uL [place] # (Auto) 0.6 (0.1-1.2) X10*3/uL Eos # (Auto) 0.2 (0.0-0.4) X10*3/uL Baso # (Auto) 0.0 (0.0-0.2) X10*3/uL Abs Immat Gran (auto) 0.02 (0.00-0.03) X10*3/uL Absolute Neuts (auto) 4.5 (2.0-8.3) x10*3/uL Absolute Nucleated RBC 0.000 (0.0-0.012) X10*3/uL Nucleated RBC % (auto) 0.0 (0.0-0.2) /100WBC Smear Tech's Comments VERIFIED Sodium 143 (135-145) mmol/L Potassium 4.2 (3.3-5.1) mmol/L Chloride 108 (96-108) mmol/L Carbon Dioxide 27 (22-29) mmol/L Anion Gap 12 (12-20) BUN 13 (9-16) mg/dL Creatinine 0.78 (0.5-1.4) mg/dL Estim Creat Clear Calc 86.4 Estimated GFR > 60 Random Glucose 94 (60-115) mg/dL Calcium 9.1 D (8.4-10.2) mg/dL Magnesium 2.0 (1.6-2.6) mg/dL Beta HCG, Quant < 2 mIU/mL Ethyl Alcohol 335 H* mg/dL Radiology Impression Discussion of test interpretation with radiology: I have reviewed the radiologist's reading. Procedures Orthopedic Fracture Reduction Fracture #1: Time Out Performed: Yes Side: right Fracture Reduction Location: radius Analgesia: procedural sedation Technique: traction/counter-traction Post Reduction X-rays Demonstrate: acceptable reduction Post-reduction neuro exam: intact Post-reduction vascular exam: intact Splint Applied: Yes Patient Tolerated Procedure: well Orthopedic Splinting/Casting Injury #1: Side: right Upper Extremity Injury Location: wrist Upper Extremity Immobilizer: sugar tong splint Other Orthopedic Equipment: other (Sling) Procedural Sedation Indication: fracture/dislocation reduction ASA Class: I Mallampati Class: I Time of Last PO Intake: 22:00 Preparation: conveyor monitor applied, pulse oximeter, capnometry used, supplemental O2 applied, suction/airway equipment at bedside and IV secured Midazolam: IV Midazolam dose (mg): 5 Dosage Used (mgs): 5 Ketamine: IV Ketamine dose (mg): 59 Patient Tolerated Procedure: well Complications: none Interventions: oxygen applied Critical Care Time Critical Care Time Critical Care Time: Yes Total Critical Care Time: 35 Attestation: I Yvrose HARTLEYC have personally performed 35 minutes of critical care time not including lines and procedures; right wrist fracture, requiring procedural sedation, requiring fracture reduction and splinting Discharge Plan Discharge Clinical Impression: Distal radius fracture, right Patient Disposition: Home, Self-Care Instructions: Wrist Fracture in Adults (ED) Additional Instructions: You sustained a fracture of the wrist. Keep the splint in place, keep it clean and dry. Call the orthopedic service tomorrow to schedule follow up appointment, they will be expecting to see you within the next 1-2 days. Alternate elax-evn-mrnsdjn ibuprofen 600 mg taken every 6 hours with food, with oqcj-[id number]-[id number] Tylenol 1000 mg taken every 8 hours, with the oxycodone, only as needed and as directed, for your pain. Oxycodone can be constipating take a concurrent stool softener to help prevent constipation. Prescriptions: New oxycodone 5 mg tablet 5 mg PO Q8H PRN (Reason: pain) Qty: 10 0RF Rx Instructions: Partial Fill upon patient request. No Action ondansetron HCl [Zofran] 4 mg tablet 4 mg PO Q8H PRN (Reason: nausea and vomiting) Qty: 10 0RF oxycodone 5 mg tablet 5 mg PO BID PRN (Reason: pain) 5 Days Qty: 10 0RF valacyclovir 1 gram tablet 1,000 mg PO Q8H Qty: 20 0RF ketorolac 10 mg tablet 10 mg PO Q6H PRN (Reason: pain) Qty: 20 0RF Rx Instructions: maximum total duration of 5 days from all oral, intranasal, or parenteral formulations. The patient received an IV dose of Toradol here in the emergency room Referrals: Rajani Mohan MD [Physician, Hand Surgery] Referral Note: Right distal radial fracture Stand Alone Forms: Work/School Release Print Language: Frisian
[2024-10-28 23:30] VITALS: BP 106/70; PULSE 68; RESP 16; O2SAT 100
[2024-10-29] VITALS (25 sets, daily range): BP systolic 88–121; BP diastolic 45–66; PULSE 66–94; RESP 13–19; TEMP 36.1–36.8; O2SAT 92–100
[2024-10-29] MEDS: Ketamine HCl/NS 50 MG/5 ML SYRINGE 58.9 MG IVPUSH (00:12)
--- NOTE | 2024-10-29 02:36 | MHC.EDTECH ---
Addendum entered by Malgorzata Chaudhry 10/29/24 02:38: patient placed on social services manager, bp cuff and o2 sat prob attached to patient. Original Note: 2330 patient moved to bed 4 for procedure
--- NOTE | 2024-10-29 02:50 | PC.NURSE ---
Addendum entered by Pearl Perez 10/29/24 05:48: pt lethargic and unable to follow commands at time of O2. awakes briefly to name and physical stim only. NSR on tele Original Note: R wrist reduction started at 0011, pt tolerated well, ketamine and versed given prior to procedure. procedure completed by 0017. pt arousing shortly after, sitting up, moving arms, following commands. then laid back to rest. 10 minutes later pt's O2 began to drop. 2L NC was applied. MD at bedside. states it was the affect of etoh and versed. pt monitors q15 until able to follow commands and remain oriented.
--- NOTE | 2024-10-29 03:43 | PC.NURSE ---
pt more awake at this time. able to tell me why she was here and what happened. able to follow commands. pt now resting again. pt removed NC. O2 96%
--- NOTE | 2024-10-29 04:36 | PC.NURSE ---
pt awake. A/O x4. back to baseline. able to follow commands and answer questions
--- NOTE | 2024-10-29 04:44 | PC.NURSE ---
pt ambulated to the bathroom with a steady gait, reporting nausea.
--- NOTE | 2024-10-29 05:39 | PC.NURSE ---
pt ambulated with steady gait, significant other here to flower buncher or picker.
== END 2024-10-29 05:50 | disposition home or self-care (01) ==
PROVIDERS: Physician Assistant Medical; Emergency Provider Emergency Medicine
DX: S52.501A Unspecified fracture of the lower end of right radius, initial encounter for closed fracture (principal); M25.531 Pain in right wrist; F10.129 Alcohol abuse with intoxication, unspecified; Y90.9 Presence of alcohol in blood, level not specified; R10.2 Pelvic and perineal pain; X50.1XXA Overexertion from prolonged static or awkward postures, initial encounter; X50.9XXA Other and unspecified overexertion or strenuous movements or postures, initial encounter; Y93.9 Activity, unspecified; Y92.9 Unspecified place or not applicable; Y99.8 Other external cause status; Z51.81 Encounter for therapeutic drug level monitoring; Z79.899 Other long term (current) drug therapy
CPT/HCPCS: 25605; 29125; 36415; 73110; 80048; 80307; 83735; 84702; 85025; 96372; 96374; 96375; 99284; 99285; J1885; J2250; J2405

== ENCOUNTER → 2024-10-29 00:18 | Outpatient (BNV) | payer OTHER, SELFPAY | PROVIDERS: Emergency Provider Emergency Medicine; Visit Provider Student in an Organized Health Care Education/Training Program | DX: S52.501A Unspecified fracture of the lower end of right radius, initial encounter for closed fracture (principal) | CPT/HCPCS: 73110 ==

== ENCOUNTER 2024-10-30 09:42 | Outpatient (REF) | payer OTHER, SELFPAY ==
--- NOTE | ~2024-10-30 | XR_ITS ---
EXAMINATION: XR ELBOW, RIGHT CLINICAL INFORMATION: M25.521 - Pain in right elbow COMPARISON: None available. TECHNIQUE: AP, lateral, and oblique views of the right elbow. FINDINGS: Study is limited by obliquity and the presence of a cast. No fracture, dislocation, or suspicious bone lesion. No malalignment. No evidence of joint effusion. Normal soft tissues. XR/XR elbow RT min 3V IMPRESSION: Normal right elbow. Electronically signed by: Torey Carlin MD 10/30/2024 04:41 PM EDT
--- NOTE | ~2024-10-30 | XR_ITS ---
EXAMINATION: XR WRIST, RIGHT CLINICAL INFORMATION: M25.531 - Pain in right wrist COMPARISON: 10/29/2024, 10/28/2024. TECHNIQUE: PA, lateral, and oblique views of the right wrist. FINDINGS: Casting material overlies the right wrist, obscuring fine bony detail. Redemonstration of intra-articular comminuted fracture of the distal radius with mild displacement unchanged. Mild sclerosis of the fracture margins. No gross bony callus present. Redemonstration of ulnar styloid avulsion fracture. Carpal bones remain intact and normally aligned. XR/XR wrist RT min 3V IMPRESSION: Comminuted intra-articular distal radial fracture, stable in alignment. Ulnar styloid avulsion fracture, unchanged. Electronically signed by: Torey Carlin MD 10/30/2024 04:43 PM EDT
--- OUTSIDE RECORDS SUMMARY | 2024-10-30 10:50 | XMS_ITS | Clinical Summary ---
Author Organization [facility] Address [address] [place] [phone] Phone Care Team Providers Care Banbury Machine Operator Name Role Phone Unknown, Unknown Primary Care [...] topic Medical Devices Not on file Insurance [facility] Care Teams Banbury Machine Operator Relationship Specialty Start Date End Date Unknown, Unknown, PCP - General 05/23/18 Additional Source Comments The information contained in this document represents components of the legal health record. It is not the complete legal health record.[facility]
== END 2024-10-30 09:43 | disposition home or self-care (01) ==
LOC: HO.HOSX 09:42
PROVIDERS: Visit Provider Orthopaedic Surgery
DX: S52.611A Displaced fracture of right ulna styloid process, initial encounter for closed fracture (principal); S52.614A Nondisplaced fracture of right ulna styloid process, initial encounter for closed fracture; W19.XXXA Unspecified fall, initial encounter
CPT/HCPCS: 73080; 73110

== ENCOUNTER 2024-10-30 15:08 | Outpatient (AMB) | payer OTHER, SELFPAY ==
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
[2024-10-30 15:17] VITALS: BMI 25.7
== END 2024-10-30 15:51 | disposition home or self-care (01) ==
LOC: HO.HOS 15:09
PROVIDERS: Visit Provider Orthopaedic Surgery
DX: S52.501A Unspecified fracture of the lower end of right radius, initial encounter for closed fracture (principal); S52.611A Displaced fracture of right ulna styloid process, initial encounter for closed fracture
CPT/HCPCS: 99204

== ENCOUNTER → 2024-10-30 15:09 | Outpatient (BNV) | payer OTHER, SELFPAY | PROVIDERS: Visit Provider Radiology Diagnostic Radiology | DX: S52.571A Other intraarticular fracture of lower end of right radius, initial encounter for closed fracture (principal); S52.611A Displaced fracture of right ulna styloid process, initial encounter for closed fracture; M25.521 Pain in right elbow | CPT/HCPCS: 73080; 73110 ==

== ENCOUNTER 2024-11-01 10:36 | Day surgery (SDC) | payer OTHER, SELFPAY ==
--- OUTSIDE RECORDS SUMMARY | 2024-10-31 06:38 | XMS_ITS | Clinical Summary ---
Author Organization [facility] Address [address] [place] [phone] Phone Care Team Providers Care Set Up Mechanic Stamping Machines Name Role Phone Unknown, Unknown Primary Care Provider Gerald wniters Allergies No known active allergies Medications etonogestrel [...] (18-6 5 YEARS) 05/29/2011 PAP SMEAR 2014 INFLUENZA VACCINE (#1) 2024 COVID-19 VACCINE (2024-2 6 season) 2024 12/10/2020, 11/19/2020 Adult Td,Tdap Booster 03/22/2025 03/22/2015 [...] Devices Not on file Insurance [facility] HMO [facility] HMO Care Teams Set Up Mechanic Stamping Machines Relationship Specialty Start Date End Date Unknown, Unknown, PCP - General 05/23/18 Additional Source Comments The information contained in this document represents components of the legal health record. It is not the complete legal health record.[facility]
--- NOTE | 2024-10-31 11:03 | HO.ANESPROP2 ---
Documented by User: Dalia Miller NP 10/31/24 11:05 HPI - Anesthesia Eval Consult details Narrative: 29yo F for Right Radius Distal Fracture ORIF PMFSH Active Problems Active Problems: All Active Problems Distal radius fracture, right (Acute) Fracture of right ulnar styloid (Acute) Past Medical History Medical History Pancreatitis Social History Social History Alcohol intake: current Alcohol intake frequency: 0-2 drinks per day Patient Tobacco Use Status: Never used Tobacco Use of substances other than those prescribed or required for medical reasons: No Are you DNR?: No Advance Directives: No Advance Directives Information Provided: Yes Current occupational status: employed 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 Meds Allergies Allergy/AdvReac Type Severity Reaction Status Date / Time No Known Allergies (No Known Allergy Verified 10/30/24 15:21 Allergies*) Exam Pertinent Lab Results Pertinent Lab Results: Laboratory Tests 10/28/24 22:09 WBC 10.6 Hgb 13.3 Hct 39.3 Plt Count 259 Sodium 143 Potassium 4.2 Chloride 108 Carbon Dioxide 27 BUN 13 Creatinine 0.78 Assessment and Plan Assessment Anesthesia Assessment: Chart Reviewed Documented by User: Tracey Fitzgerald MD 11/01/24 12:18 [facility] Past Medical History Medical History Pancreatitis Family History Family history of problems with anesthesia: No Surgical History History of Problems with Anesthesia: No Social History Social History Alcohol intake: current Alcohol intake frequency: 0-2 drinks per day Patient Tobacco Use Status: Never used Tobacco Use of substances other than those prescribed or required for medical reasons: No Are you DNR?: No Advance Directives: No Advance Directives Information Provided: Yes Current occupational status: employed 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 Allergies Allergy/AdvReac Type Severity Reaction Status Date / Time No Known Allergies (No Known Allergy Verified 10/30/24 15:21 Allergies*) Exam Airway Mallampati Class: II TM Dist: >3cm Neck ROM: Full Heart: rrr Lungs: cta Assessment and Plan Assessment Anesthesia Assessment: Anesthesia Plan Discussed Final Anesthetic Review Family History of Problems with Anesthesia: No History of Problems with Anesthesia: No NPO: Yes ASA Class: I Final Preanesthetic Review: No Changes in Pt Med Stat, Meds/Allgs Chart Reviewed, Consent Obtained/Reviewed and Anes Risks/Benef Reviewed Patient Risk: Low Procedure Risk: Intermediate Anesthetic Plan Anesthetic Plan: GA and Agree w/ Assess. and Plan Disposition: Standard PACU
--- NOTE | ~2024-11-01 | FL_ITS ---
EXAMINATION: XR FLUOROSCOPY WITH IMAGES CLINICAL INFORMATION: Right wrist ORIF COMPARISON: None available. TECHNIQUE: Fluoroscopy provided to: Dr. Mohan Fluoroscopy time: 41 seconds DAP: [id number] mGy Images: 5 FINDINGS: 5 fluoroscopic spot images during ORIF of distal right radial fracture. Please refer to the full operative report for details. FL/FL guidance in OR IMPRESSION: Fluoroscopic guidance. Electronically signed by: Torey Carlin MD 11/01/2024 03:05 PM EDT
[2024-11-01 11:03] VITALS: BMI 24.9
[2024-11-01] MEDS: Lactated Ringers 1,000 ML 100 ML IVCONT (11:08)
[2024-11-01 11:16] LABS: UPreg QC Valid YES
--- NOTE | 2024-11-01 12:24 | MHC.SHP ---
Pre-Procedural Eval Section A - 24 Hr Update-Section A only Date of Service: 11/01/24 The patient is an INPATIENT: No Changes since office visit: No Cold of Flu in the past 2 weeks, No New Medical Problems, No Changes in Medication and No Patient answered all questions The patient has been examined within 24 hours of the surgical procedure. The History & Physical has been completed within 30 days and I have reviewed it.: Yes Section B - Complete if H&P > 30 days Chief Complaint: Unspecified fracture of the lower end of right Allergies: Allergies Allergy/AdvReac Type Severity Reaction Status Date / Time No Known Allergies (No Known Allergy Verified 10/30/24 15:21 Allergies*) Plan I have reviewed the history and physical and performed a pertinent physical examination on my patient. No changes have occurred unless specified. Time Spent With Patient Time: Total time managing care of this patient today ____ minutes.
--- NOTE | 2024-11-01 12:24 | W.PM.OPN ---
Operative Note Operative Note Date of Service: 11/01/24 Narrative: Operative Note Narrative: Preop diagnosis: 1. Right Distal radius fracture, intra-articular Postop diagnosis: Same Procedure: 1. Distal radius fracture open reduction internal fixation, 2 part intra-articular Surgeon: Rajani Mohan MD Drill Press Operator For Metal: Karlos HANSON Anesthesia: General anesthesia plus regional block Findings: Intra-articular distal radius fracture Implants: A 3 hole Accu Med volar locking plate, with 5 X 2.3 mm locking pegs/screws, and 3 3.5 mm cortical screws Tourniquet time: 68 minutes EBL: 5.0 ml Specimen: None Drains: None Complications: None Disposition: Brought to the recovery room in stable condition Plan: Follow-up in 10-14 days for wound check, suture removal and postop radiographs The patient will be placed in either a short-arm cast Encouraged no lifting of anything heavier than a cell phone. Please encourage active and passive range of motion of the digits. Follow-up at 4-5 weeks postop for repeat radiographs. Indications: The patient is a 29 year old woman with with a comminuted intra-articular right distal radius fracture . The risks and benefits of operative treatment, including but not limited to risk of damage to blood vessels, nerves, tendons, infection, recurrence, persistent pain or numbness, incomplete resolution of preoperative symptoms, or need for further surgery were discussed with the patient and they wished to proceed with surgery. Procedure: Once consent was obtained patient was brought back to the operating suite and placed in the operating table in a supine position. A regional block was performed by the anesthesia team. Perioperative antibiotics and anesthesia was administered by the anesthesia team. A tourniquet was applied to the proximal aspect of the right upper extremity and the limb was prepped and draped in a standard surgical fashion. The limb was elevated exsanguinated with Esmarch bandage and the tourniquet inflated to 250 mm of mercury for a total tourniquet time of 68 minutes. The FluoroScan was used throughout the case to assess our reduction, and facilitate implant placement. A gentle closed reduction was 1st performed on the patient's right distal radius fracture. Was assessed radiographically before proceeding with the reduction internal fixation. I then made an 8 cm longitudinal incision over the distal aspect of the flexor carpi radialis tendon. The incision was made through the skin to the subcutaneous tissue using a 15. Blade. Then carefully dissected down to flexor carpi radialis tendon she tenotomy scissors. The FCR tendon sheath was then incised longitudinally using tenotomy scissors under direct visualization. The FCR tendon was then retracted ulnarly. I then made a longitudinal incision in the volar forearm fascia through the floor of FCR tendon sheath using tenotomy scissors under direct visualization. I identified the interval between the radial artery and the flexor tendons. This interval was developed further with my index finger, releasing some of the muscular fibers of the flexor pollicis longus. A dull weatlander retractor was then placed. I then created an ulnarly based flap of the pronator quadratus by releasing the radial and distal edges using a 15. Blade. A Seth elevator was used to elevate the pronator quadratus from the volar surface of the distal radius. This then revealed to us our distal radius fracture. It was comminuted and intra-articular both through the articular surface and the volar cortex. An open reduction was then performed on our distal radius fracture. I then placed a short standard 3 hole Accu Med volar locking plate on the volar surface of the distal radius. I placed 2 K-wire through the distal aspect of the plate and into the distal radius. This was assessed using fluoroscopic images. I was satisfied with the placement of our plate. I then placed 5 X 2.3 mm locking screws/pegs in the distal aspect of the plate and distal radius by 1st drilling bicortically with a 2.0 mm drill bit, measuring with a depth gauge, and placing the appropriate length locking screws/pegs. The placement of our plate and screws was then assessed again using fluoroscopic images. The once satisfied with the placement of the volar locking plate and screws on the distal aspect of the distal radius, the plate was then reduced to the shaft of the radius. I then placed 3 X 3.5 mm cortical screws to the proximal aspect of the plate and into the shaft of the radius. This was done by 1st drilling bicortically with a 2.8 mm drill bit, measuring with a depth gauge, and placing the appropriate length screw. Final radiographs were then obtained. The DRUJ was assessed and found to be stable on exam. I was satisfied with our reduction and placement of all implants. At this point the wound was irrigated with normal saline. The pronator quadratus was reduced back over the volar locking plate using some 3-0 Vicryl suture material. The tourniquet was then deflated and hemostasis was obtained with a brief period of local pressure and bipolar monopolar electrocautery. The subcutaneous layer was then reapproximated using some 4-0 Vicryl suture, and the skin edges were reapproximated using some 5 0 Prolene suture. The wound was then infiltrated with some 1% lidocaine with epinephrine postop pain control. A sterile dressing and a short dorsal splint allowing for active flexion and extension of the digits was applied. The patient appears to have tolerated the procedure well and with no complications. All digits were well vascularized conclusion of the case.
[2024-11-01 14:25] VITALS: BP 121/76; PULSE 70; RESP 12; TEMP 36.1; O2SAT 93
[2024-11-01 14:30] VITALS: BP 112/63; PULSE 69; RESP 12; O2SAT 94
[2024-11-01 14:35] VITALS: BP 115/67; PULSE 59; RESP 12; O2SAT 94
[2024-11-01 14:40] VITALS: BP 110/63; PULSE 61; RESP 12; O2SAT 94
[2024-11-01 14:45] VITALS: BP 100/58; PULSE 52; RESP 12; O2SAT 95
[2024-11-01 15:00] VITALS: BP 105/64; PULSE 52; RESP 12; TEMP 36.1; O2SAT 95
== END 2024-11-01 15:32 | disposition home or self-care (01) ==
PROVIDERS: Nurse Practitioner; Visit Provider Orthopaedic Surgery
PROC: (CPT 25608; principal; 2024-11-01 12:20)
DX: S52.571A Other intraarticular fracture of lower end of right radius, initial encounter for closed fracture (principal); S52.611A Displaced fracture of right ulna styloid process, initial encounter for closed fracture; R20.0 Anesthesia of skin; W18.39XA Other fall on same level, initial encounter; Y93.89 Activity, other specified; Y92.9 Unspecified place or not applicable; Y99.9 Unspecified external cause status; K85.90 Acute pancreatitis without necrosis or infection, unspecified
CPT/HCPCS: 25608; 81025; C1713; J0131; J0665; J0690; J1100; J2003; J2004; J2250; J2704; J3010

== ENCOUNTER → 2024-11-01 10:36 | Outpatient (BNV) | payer OTHER, SELFPAY | PROVIDERS: Visit Provider Orthopaedic Surgery | DX: S52.571A Other intraarticular fracture of lower end of right radius, initial encounter for closed fracture (principal) | CPT/HCPCS: 25608 ==

== ENCOUNTER 2024-11-14 13:05 | Outpatient (REF) | payer OTHER, SELFPAY ==
--- NOTE | ~2024-11-14 | XR_ITS ---
EXAMINATION: XR WRIST, RIGHT CLINICAL INFORMATION: M25.531 - Pain in right wrist COMPARISON: 10/30/2024, 10/29/2024, 10/28/2024. TECHNIQUE: PA, lateral, and oblique views of the right wrist. FINDINGS: There has been ORIF of a distal radial intra-articular fracture with volar plate and screws. Anatomic alignment. Hardware is intact and well seated. Fracture lines are still readily visible without gross changes of healing. No periosteal new bone formation seen. Ulnar styloid avulsion fracture also present without gross healing. Improved soft tissue swelling. XR/XR wrist RT min 3V IMPRESSION: 1. Fixated distal radial intra-articular fracture in anatomic alignment. No complication evident. 2. Ulnar styloid avulsion fracture. Electronically signed by: Torey Carlin MD 11/14/2024 02:47 PM EDT
== END 2024-11-14 13:06 | disposition home or self-care (01) ==
LOC: HO.HOSX 13:05
PROVIDERS: Visit Provider Orthopaedic Surgery
DX: S52.611A Displaced fracture of right ulna styloid process, initial encounter for closed fracture (principal); S52.501A Unspecified fracture of the lower end of right radius, initial encounter for closed fracture; X58.XXXA Exposure to other specified factors, initial encounter
CPT/HCPCS: 73110

== ENCOUNTER 2024-11-14 13:05 | Outpatient (AMB) | payer OTHER, SELFPAY ==
--- NOTE | 2024-11-14 13:06 | MHC.OFFVIS ---
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 Dressing removed and xrays updated in office. States pain is tolerable, she has little aches and very little discomfort in the mornings but goes away. Also mentioned she has notice very very littl tingling in her index finger, states she feels this will get better on its own. Sutures removed and steri strips applied. Allergies No Known Allergies (No Known Allergies*) Allergy (Verified 11/14/24 13:23) HPI HPI PO RT distal radius ORIF 11/01/24 AR: Details: Tisha is a 29 year old right hand dominant woman returning S/P right distal radius ORIF, DOS: 11/01/24. Injury S/P fall, DOI: 10/28/24. She says she is doing well, with some pain usually in the mornings but this improves throughout the day. She says she has some slight tingling in her index finger, but this appears to be slowly improving with time so she is not concerned She denies any numbness or tingling in her other digits. 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 Sutures removed and Steri-Strips applied She can make a fist and extend all her digits Good pronosupination Swelling improved Sensation is intact Cap refill is brisk Radiographs: 3 views of the right wrist were taken and viewed by me today in clinic. They show an oblique distal radius fracture with satisfactory fracture alignment and position of all implants. There is also a non-displaced ulnar styloid fracture Psych Appearance: grossly normal Affect: normal affect Attitude: cooperative Assessment & Plan Assessment & Plan (1) Distal radius fracture, right: Code(s): S52.501A - Unspecified fracture of the lower end of right radius, initial encounter for closed fracture Category: Medical (2) Fracture of right ulnar styloid: Code(s): S52.611A - Displaced fracture of right ulna styloid process, initial encounter for closed fracture Category: Medical Plan Assessment & Plan: 1. Right distal radius fracture, S/P ORIF DOS: 11/01/24 S/P fall, DOI: 10/28/24 Reduced in ED: 10/28/24 2. Right ulnar styloid fracture S/P fall, DOI: 10/28/24 3. Right hand tingling S/P fall, DOI: 10/28/24 In the tips of all digits Improving with time The patient appears to be doing well post-operatively I educated her about the post-operative course I explained the signs and symptoms of infection She was fitted for a velcro wrist splint, to be worn like a cast except for showering for the next 4 weeks I discussed activity modifications, she is to lift nothing heavier than a cellphone for the next 6 weeks. 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 She is returning to work on 11/15/24 on light duty, with a 2lb weight limit with her RUE until her next appointment. She will follow up in 3-4 weeks, with X-rays, 3V R wrist, OOP Scribed for Rajani Mohan MD by Raj Berger, medical examiner, on 11/14/24 at 1:30 PM, EST. Orders: Orders XR wrist RT min 3V Today M25.531 - Pain in right wrist Medications: Discontinued oxycodone Partial Fill upon patient request. Discontinued Reason: Patient Completed Course 5 mg PO Q8H PRN 10 tabs 0RF pain hydrocodone-acetaminophen 5-325 mg Partial Fill upon patient request. Discontinued Reason: Order 1 tab PO Q6H PRN 25 tabs 0RF pain Coding Level of Care Code Global (51074) Diagnoses Distal radius fracture, right S52.501A Fracture of right ulnar styloid S52.616Q
--- OUTSIDE RECORDS SUMMARY | 2024-11-14 16:37 | XMS_ITS | Clinical Summary ---
Author Organization [facility] Address [address] [place] [phone] Phone Care Team Providers Care Forensic Materials Engineer Name Role Phone Unknown, Unknown Primary Care [...] topic Medical Devices Not on file Insurance [facility] HMO [facility] HMO Care Teams Forensic Materials Engineer Relationship Specialty Start Date End Date Unknown, Unknown, PCP - General 05/23/18 Additional Source Comments The information contained in this document represents components of the legal health record. It is not the complete legal health record.[facility]
== END 2024-11-14 14:28 | disposition home or self-care (01) ==
LOC: HO.HOS 13:06
PROVIDERS: Visit Provider Orthopaedic Surgery
DX: S52.501A Unspecified fracture of the lower end of right radius, initial encounter for closed fracture (principal); S52.611A Displaced fracture of right ulna styloid process, initial encounter for closed fracture
CPT/HCPCS: 99024

== ENCOUNTER → 2024-11-14 13:57 | Outpatient (BNV) | payer OTHER, SELFPAY | PROVIDERS: Visit Provider Radiology Diagnostic Radiology | DX: S52.611A Displaced fracture of right ulna styloid process, initial encounter for closed fracture (principal) | CPT/HCPCS: 73110 ==

== ENCOUNTER 2024-12-11 08:30 | Outpatient (REF) | payer OTHER, SELFPAY | END 2024-12-11 08:31 | disposition home or self-care (01) | LOC: HO.HOSX 08:30 | PROVIDERS: Visit Provider Orthopaedic Surgery | DX: Z13.89 Encounter for screening for other disorder (principal) ==

== ENCOUNTER 2025-01-15 08:20 | Outpatient (REF) | payer OTHER, SELFPAY ==
--- NOTE | ~2025-01-15 | XR_ITS ---
EXAMINATION: XR WRIST, RIGHT CLINICAL INFORMATION: M25.531 - Pain in right wrist COMPARISON: X-ray 11/14/2024 TECHNIQUE: PA, lateral, and oblique views of the right wrist. FINDINGS: Status post internal fixation of a distal radial fracture. Intact hardware. No suspicious perihardware lucency. Stable alignment of the fracture. Decreased conspicuity of the fracture ends consistent with healing. Mildly displaced ulnar styloid fracture is redemonstrated, without evidence of osseous bridging. No new acute fractures. Radiocarpal alignment is maintained. No abnormal soft tissue calcification. XR/XR wrist RT min 3V IMPRESSION: 1. Healing distal radial fracture status post internal fixation. 2. Mildly displaced ulnar styloid fracture without evidence of osseous bridging. Electronically signed by: Black James MD 01/15/2025 01:07 PM KEVIN ANDRADE
--- OUTSIDE RECORDS SUMMARY | 2025-01-16 15:59 | XMS_ITS | Clinical Summary ---
Author Organization [facility] Address [address] [place] [phone] Phone Care Team Providers Care Hot Mill Observer Name Role Phone Unknown, Unknown Primary Care [...] topic Medical Devices Not on file Insurance [facility] HMO Care Teams Hot Mill Observer Relationship Specialty Start Date End Date Unknown, Unknown, PCP - General 05/23/18 Additional Source Comments The information contained in this document represents components of the legal health record. It is not the complete legal health record.[facility]
== END 2025-01-15 08:21 | disposition home or self-care (01) ==
LOC: HO.HOSX 08:20
PROVIDERS: Visit Provider Orthopaedic Surgery
DX: S52.501D Unspecified fracture of the lower end of right radius, subsequent encounter for closed fracture with routine healing (principal); S52.611D Displaced fracture of right ulna styloid process, subsequent encounter for closed fracture with routine healing; R20.0 Anesthesia of skin; R20.2 Paresthesia of skin; Z98.890 Other specified postprocedural states; W18.39XD Other fall on same level, subsequent encounter
CPT/HCPCS: 73110

== ENCOUNTER 2025-01-15 09:22 | Outpatient (AMB) | payer OTHER, SELFPAY ==
--- NOTE | 2025-01-15 09:44 | A.OFFVIS_ITS ---
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 At her last visit she was fitted for a velcro wrist brace and was advise to avoid heavy lifting and to modify activities. 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 She is returning to work on 11/15/24 on light duty, with a 2lb weight limit with her RUE. Today patient states she continues to have weakness and feels like her hand is fragile. She has numbness on all of her fingers on her right hand since date of surgery. Xrays updated in office. Allergies No Known Allergies (No Known Allergies*) Allergy (Verified 01/15/25 09:48) HPI HPI PO RT distal radius ORIF 11/01/24 AR-w/xrays: Details: Tisha is a 29 year old right hand dominant woman returning S/P right distal radius ORIF, DOS: 11/01/24. Injury S/P fall, DOI: 10/28/24. Reviewed XR in office. She says she is doing well. She says she has some slight tingling in her index finger, but this appears to be slowly improving with time so she is not concerned. She states that she is training for a workout competition in April. She denies any numbness or tingling in her other digits. 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 She can make a tight fist with good strength and extend all her digits She now has nearly symmetrical and full wrist flexion and extension She is only lacking perhaps 10 degrees of supination on the right compared to the left which is full Symmetrical and full pronation Fracture completely nontender DRUJ stable Radiographs: 3 views of the right wrist were taken and viewed by me today in clinic. They show an oblique distal radius fracture with satisfactory fracture alignment and position of all implants. There is also a non-displaced ulnar styloid fracture Psych Appearance: grossly normal Affect: normal affect Attitude: cooperative Assessment & Plan Assessment & Plan (1) Distal radius fracture, right: Code(s): S52.501A - Unspecified fracture of the lower end of right radius, initial encounter for closed fracture Category: Medical (2) Fracture of right ulnar styloid: Code(s): S52.611A - Displaced fracture of right ulna styloid process, initial encounter for closed fracture Category: Medical Plan 1. Right distal radius fracture, S/P ORIF DOS: 11/01/24 S/P fall, DOI: 10/28/24 2. Right ulnar styloid fracture S/P fall, DOI: 10/28/24 3. Right hand numbness and tingling in the fingertips S/P fall, DOI: 10/28/24 In the tips of all digits, and does not appear to be improving. I am ordering an EMG nerve conduction study. 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 She appears to be doing well postoperatively. She has done a nice job regaining her range of motion. 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 I ordered OT hand therapy to improve strength training and function. Forceful wrist extension is something she would like to work on. Advised to let the OT team know that she has a workout competition in April and she would like to do burpee's. I also ordered an EMG, nerve conduction study Follow up after nerve conduction study. No radiographs are necessary. Scribed for Rajani Mohan MD by Molly Kennedy, medical representative, on 01/15/2025 at 10:09 AM, EST. Orders: Orders XR wrist RT min 3V Today M25.531 - Pain in right wrist NE electromyogram (EMG) Today R20.0 - Anesthesia of skin, R20.2 - Paresthesia of skin NE nerve conduction velocity Today R20.0 - Anesthesia of skin, R20.2 - Paresthesia of skin OT Evaluation and Treatment Today S52.501A - Unspecified fracture of the lower end of right radius, initial encounter for closed fracture, S52.611A - Displaced fracture of right ulna styloid process, initial encounter for closed fracture Coding Level of Care Code Global (71491) Diagnoses Distal radius fracture, right S52.501A Fracture of right ulnar styloid S52.611A
[2025-01-15 09:46] VITALS: BMI 25.7
== END 2025-01-15 10:29 | disposition home or self-care (01) ==
LOC: HO.HOS 09:22
PROVIDERS: Visit Provider Orthopaedic Surgery
DX: S52.501A Unspecified fracture of the lower end of right radius, initial encounter for closed fracture (principal); S52.611A Displaced fracture of right ulna styloid process, initial encounter for closed fracture
CPT/HCPCS: 99024

== ENCOUNTER → 2025-01-15 09:26 | Outpatient (BNV) | payer OTHER, SELFPAY | PROVIDERS: Visit Provider Radiology Diagnostic Ultrasound | DX: S52.611A Displaced fracture of right ulna styloid process, initial encounter for closed fracture (principal); S52.501D Unspecified fracture of the lower end of right radius, subsequent encounter for closed fracture with routine healing | CPT/HCPCS: 73110 ==